=== PATIENT | male | born 1985 | race African-American/Black ===

== ENCOUNTER 2020-04-28 09:03 | Emergency (ER) | payer SELFPAY, OTHER ==
--- NOTE | 2020-04-28 10:45 | ER ---
Nurse's Notes [facility] Name: Favio Saeed Age: 34 yrs Sex: Male : 1985 Arrival Date: 04/28/2020 Time: 09:07 Bed 19 Private MD: Diagnosis: Acute upper respiratory infection, unspecified Presentation: 04/28 09:25 Chief complaint: Patient states: cough, congestion, sore throat X 3-4 days , denies iw fever or chills. Coronavirus screen: congestion, cough unrelated to allergies. Ebola Screen: Patient negative for fever greater than or equal to 101.5 degrees Fahrenheit, and additional compatible Ebola Virus Disease symptoms Patient denies exposure to infectious person. Patient denies travel to an Ebola-affected area in the 21 days before illness onset. No symptoms or risks identified at this time. Initial Sepsis Screen: Does the patient meet any 2 criteria? No. Patient's initial sepsis screen is negative. Does the patient have a suspected source of infection? No. Patient's initial sepsis screen is negative. Risk Assessment: Do you want to hurt yourself or someone else? Patient reports no desire to harm self or others. Onset of symptoms was April 25, 2020. 09:25 Method Of Arrival: Ambulatory iw 09:25 Acuity: ARJUN 4 iw Historical: - Allergies: 09:27 No Known Allergies; iw - Immunization history:: Adult Immunizations unknown. - Social history:: Smoking status: unknown. Screenin:04 Abuse screen: Denies threats or abuse. Denies injuries from another. Nutritional ph screening: No deficits noted. Tuberculosis screening: No symptoms or risk factors identified. Fall Risk None identified. Assessment: 10:34 General: Appears in no apparent distress. comfortable, Behavior is calm, cooperative, ph appropriate for age, Denies fever. Pain: Complains of pain in throat. Neuro: Level of Consciousness is awake, alert, obeys commands, Oriented to person, place, time, situation. Cardiovascular: Capillary refill < 3 seconds in bilateral fingers Patient's skin is warm and dry. Respiratory: Reports cough that is Airway is patent Respiratory effort is even, unlabored, Respiratory pattern is regular, symmetrical, Denies shortness of breath. GI: No signs and/or symptoms were reported involving the gastrointestinal system. EENT: Throat is reddened Reports nasal congestion pain when swallowing. Derm: Skin is intact, is healthy with good turgor, Skin is pink, warm \T\ dry. Musculoskeletal: Circulation, motion, and sensation intact. Range of motion: intact in all extremities. 10:53 Reassessment: Patient appears in no apparent distress at this time. Patient and/or ph family updated on plan of care and expected duration. Pain level reassessed. Patient is alert, oriented x 3, equal unlabored respirations, skin warm/dry/pink. Pt refusing COVID test at this time, awaiting d/c papers. 11:03 Reassessment: Patient appears in no apparent distress at this time. Patient and/or ph family updated on plan of care and expected duration. Pain level reassessed. Patient is alert, oriented x 3, equal unlabored respirations, skin warm/dry/pink. Pt provided w/ work note and d/c home. Vital Signs: 10:23 Resp 16; Temp 98.2; iw 10:35 BP 137 / 86; Pulse 81; Resp 18; Pulse Ox 99% on R/A; ph 11:03 Temp 97.9; ph ED Course: 09:07 Patient arrived in ED. mr 09:17 Joya Flores FNP-C [facility]. kb 09:17 Master Coronel MD is Attending Physician. kb 09:26 Triage completed. iw 09:56 Strep Sent. dh3 09:56 Flu Sent. dh3 09:59 Xiomara Ronqulilo, FAITH is Primary Nurse. ph 10:00 Patient has correct armband on for positive identification. Bed in low position. Call ph light in reach. Side rails up X 1. Pulse ox on. NIBP on. Door closed. Noise minimized. 10:53 Arm band placed on. ph 10:54 No provider procedures requiring assistance completed. Patient did not have IV access ph during this emergency room visit. Administered Medications: No medications were administered Outcome: 10:44 Discharge ordered by . kb 11:04 Discharged to home ambulatory. ph 11:04 Condition: good 11:04 Discharge instructions given to patient, Instructed on discharge instructions, follow up and referral plans. Demonstrated understanding of instructions, follow-up care. 11:04 Patient left the ED. ph Signatures: Joya Flores FNP-C FNP-Ckb Rivera, Mary mr Williams, Irene, RN Xiomara Feldman RN RN sophie Clayton, Carol Ann 3
--- NOTE | 2020-04-28 10:45 | EDPHYS ---
Physician Documentation [facility] Name: Favio Saeed Age: 34 yrs Sex: Male : 1985 Arrival Date: 04/28/2020 Time: 09:07 Bed 19 Private MD: ED Physician Master Coronel HPI: 04/28 09:29 This 34 yrs old Black Male presents to ER via Ambulatory with complaints of Sore kb Throat, Cough. 09:29 The patient or guardian reports cough, that is intermittent, described as mild, with no kb sputum. Onset: The symptoms/episode began/occurred 3 day(s) ago. Severity of symptoms: At their worst the symptoms were mild, moderate, in the emergency department the symptoms are unchanged. Modifying factors: The symptoms are alleviated by nothing, the symptoms are aggravated by nothing. Associated signs and symptoms: Pertinent positives: rhinorrhea, sore throat, Pertinent negatives: chest pain, diarrhea, ear ache, fever, nausea, vomiting. The patient has not experienced similar symptoms in the past. The patient has not recently seen a physician. Pt reports cough, rhinorrhea, congestion, sore throat and abd pain when coughing. Denies fever. States this started 3-4 days ago. Historical: - Allergies: 09:27 No Known Allergies; iw - Immunization history:: Adult Immunizations unknown. - Social history:: Smoking status: unknown. ROS: 09:28 Cardiovascular: Negative for chest pain, palpitations, and edema, Abdomen/GI: Negative kb for abdominal pain, nausea, vomiting, diarrhea, and constipation, Back: Negative for injury and pain, MS/Extremity: Negative for injury and deformity, Skin: Negative for injury, rash, and discoloration. 09:28 Constitutional: Positive for malaise. 09:28 ENT: Positive for rhinorrhea, sinus congestion, sore throat. 09:28 Respiratory: Positive for cough, Negative for dyspnea on exertion, hemoptysis, orthopnea, pleurisy, shortness of breath, sputum production, wheezing. Exam: 09:28 Constitutional: This is a well developed, well nourished patient who is awake, alert, kb and in no acute distress. Head/Face: Normocephalic, atraumatic. Chest/axilla: Normal chest wall appearance and motion. Nontender with no deformity. No lesions are appreciated. Cardiovascular: Regular rate and rhythm with a normal S1 and S2. No gallops, murmurs, or rubs. Normal PMI, no JVD. No pulse deficits. Respiratory: Lungs have equal breath sounds bilaterally, clear to auscultation and percussion. No rales, rhonchi or wheezes noted. No increased work of breathing, no retractions or nasal flaring. Abdomen/GI: Soft, non-tender, with normal bowel sounds. No distension or tympany. No guarding or rebound. No evidence of tenderness throughout. Skin: Warm, dry with normal turgor. Normal color with no rashes, no lesions, and no evidence of cellulitis. MS/ Extremity: Pulses equal, no cyanosis. Neurovascular intact. Full, normal range of motion. Neuro: Awake and alert, GCS 15, oriented to person, place, time, and situation. Cranial nerves II-XII grossly intact. Motor strength 5/5 in all extremities. Sensory grossly intact. Cerebellar exam normal. Normal gait. 09:28 ENT: Posterior pharynx: Airway: normal, no evidence of obstruction, Tonsils: with erythema, Uvula: normal, midline, swelling, is not appreciated, erythema, that is moderate. Vital Signs: 10:23 Resp 16; Temp 98.2; iw 10:35 BP 137 / 86; Pulse 81; Resp 18; Pulse Ox 99% on R/A; ph 11:03 Temp 97.9; ph MDM: 09:17 Patient medically screened. kb 09:28 Data reviewed: vital signs, nurses notes. Data interpreted: Pulse oximetry: on room air kb is 100 %. Interpretation: normal. 10:44 Counseling: I had a detailed discussion with the patient and/or guardian regarding: the kb historical points, exam findings, and any diagnostic results supporting the discharge/admit diagnosis, lab results, the need for outpatient follow up, a family practitioner, to return to the emergency department if symptoms worsen or persist or if there are any questions or concerns that arise at home. 04/28 09:22 Order name: Flu; Complete Time: 10:51 kb 04/28 09:22 Order name: Strep; Complete Time: 10:51 kb 04/28 10:44 Order name: COVID-19 kb 04/28 10:48 Order name: Throat Culture EDMS Administered Medications: No medications were administered Disposition: 04/29 09:19 Co-signature as Attending Physician, Master Coronel MD I agree with the assessment and kdr plan of care. Disposition: 04/28/20 10:44 Discharged to Home. Impression: Acute upper respiratory infection, unspecified. - Condition is Stable. - Discharge Instructions: Viral Respiratory Infection, [id number], COVID-19. - Medication Reconciliation Form, Thank You Letter, Antibiotic Education, Prescription Opioid Use, Work release form form. - Follow up: Emergency Department; When: As needed; Reason: Worsening of condition. Follow up: Private Physician; When: 2 - 3 days; Reason: Recheck today's complaints, Continuance of care, Re-evaluation by your physician. Signatures: Dispatcher [employer] EDMS Joya Flores, CLIENT RELATION SPECIALIST-C CLIENT RELATION SPECIALIST-Master Phillips MD MD [facility] Fernanda Edwards, FAITH RN iw Xiomara Ronquillo RN RN ph Corrections: (The following items were deleted from the chart) 04/28 11:04 10:44 04/28/2020 10:44 Discharged to Home. Impression: Acute upper respiratory ph infection, unspecified. Condition is Stable. Forms are Medication Reconciliation Form, Thank You Letter, Antibiotic Education, Prescription Opioid Use. Follow up: Emergency Department; When: As needed; Reason: Worsening of condition. Follow up: Private Physician; When: 2 - 3 days; Reason: Recheck today's complaints, Continuance of care, Re-evaluation by your physician. kb
[2020-04-28 11:14] VITALS: BP 137/86; O2SAT 99
[2020-04-28 11:17] VITALS: TEMP 97.9
--- OUTSIDE RECORDS SUMMARY | 2020-05-04 14:48 | XMS REPORT | Continuity of Care Document ---
:1985 Author Organization [facility] t Address [address] [place] [address] Care Team Providers Name Role Phone Unavailable Unavailable Unavailable Problems This patient has no known problems. Allergies, Adverse Reactions, Alerts This patient has no known allergies or adverse reactions. Medications This patient has no known medications. Procedures This patient has no known procedures. Results This patient has no known results.
== END 2020-04-28 11:04 | disposition home or self-care (01) ==
LOC: ER 09:03
DX: J06.9 Acute upper respiratory infection, unspecified (principal); Z53.20 Procedure and treatment not carried out because of patient's decision for unspecified reasons
CPT/HCPCS: 87070; 87081; 87804; 99283